=== PATIENT | female | born 2000 | race African-American/Black ===

== ENCOUNTER 2021-01-08 20:56 | Emergency (ER) | payer OTHER ==
[~2021-01-08] VITALS: Ht 157.5 cm; Wt 58.1 kg
[2021-01-08] MEDS ORDERED: AMOXICILLIN500 MG PO (21:54)
== END 2021-01-08 22:02 | disposition home or self-care (01) ==
LOC: FSED 21:13
DX: K04.7 Periapical abscess without sinus (principal); K08.89 Other specified disorders of teeth and supporting structures; Z33.1 Pregnant state, incidental
CPT/HCPCS: 99282